=== PATIENT | male | born 1955 | race American Indian/Alaskan Native ===

== ENCOUNTER 2021-07-23 12:18 | Emergency (ER) | payer SELFPAY ==
[2021-07-23] MEDS ORDERED: LIDOCAINE (1%) 10 MG/1 ML VIAL 20 ML MDV INFILTRATI ONE (17:31)
--- NOTE | 2021-07-23 18:31 | Emergency Department Report ---
- General Chief Complaint: Laceration/Recheck/Suture Stated Complaint: LEFT EYEBROW AND LEFT HAND INJURY/WORK RELATED Time Seen by Provider: 07/23/21 17:30 Source: patient Mode of arrival: Ambulatory Limitations: No Limitations - History of Present Illness Initial Comments: 66 yom with no pmh presents to ed for evaluation of left eyebrow laceration and right hand laceration after injury at work. He states that he bumped his head on a door that he was installing and cut his right hand. He states that he was seen at [facility] here, received a tetanus shot there then was sent here for further evaluation. He denies LOC. -: Sudden Location: face Extremity Location: Right: Hand 1 - laceration 2 - laceration 3 - laceration Place: work Patient Tetanus UTD: Yes Context: accidental Associated Symptoms: pain Treatments Prior to Arrival: bandage - Related Data Previous Rx's Medication Instructions Recorded Last Taken Type cephALEXin [Keflex] 500 mg PO Q12HR #14 cap 07/23/21 Unknown Rx Allergies Allergy/AdvReac Type Severity Reaction Status Date / Time No Known Allergies Allergy Unverified 07/23/21 17:03 ED Review of Systems ROS: Stated complaint: LEFT EYEBROW AND LEFT HAND INJURY/WORK RELATED Other details as noted in HPI Comment: All other systems reviewed and negative Constitutional: denies: chills, fever ENT: denies: ear pain Respiratory: no symptoms reported. denies: shortness of breath Cardiovascular: syncope. denies: chest pain, palpitations, edema Endocrine: no symptoms reported Gastrointestinal: denies: abdominal pain, nausea, vomiting Genitourinary: denies: urgency, dysuria Musculoskeletal: denies: back pain Skin: denies: rash, lesions Neurological: denies: headache, weakness Psychiatric: denies: anxiety Hematological/Lymphatic: denies: easy bleeding ED Past Medical Hx - Medications Home Medications: Home Medications Medication Instructions Recorded Confirmed Last Taken Type cephALEXin [Keflex] 500 mg PO Q12HR #14 cap 07/23/21 Unknown Rx ED Physical Exam - General Limitations: No Limitations General appearance: alert, in no apparent distress - Head Head exam: Present: normocephalic. Absent: atraumatic, normal inspection - Expanded Head Exam Expanded Head exam: Present: laceration 1 - laceration - Eye Eye exam: Absent: conjunctival injection - Neck Neck exam: Present: normal inspection. Absent: tenderness - Respiratory Respiratory exam: Absent: respiratory distress - Cardiovascular Cardiovascular Exam: Present: regular rate - GI/Abdominal GI/Abdominal exam: Absent: distended - Extremities Exam Extremities exam: Absent: normal inspection - Expanded Upper Extremity Exam Right Hand Wrist exam: Present: tenderness, laceration. Absent: normal inspection Hand L/R Front: 1 - Positive: laceration 2 - Positive: laceration Neurosensory exam: Present: radial nerve intact Vascular: Absent: vascular compromise, normal capillary refill, pulse deficit radial art - Back Exam Back exam: Present: normal inspection, full ROM. Absent: tenderness - Neurological Exam Neurological exam: Present: alert, oriented X3 - Psychiatric Psychiatric exam: Present: normal affect, normal mood - Skin Skin exam: Present: warm, dry, intact, normal color ED Course Vital Signs 07/23/21 07/23/21 17:03 19:00 Temperature 98.5 F Pulse Rate 76 80 Respiratory 16 Rate Blood Pressure 206/82 [Left] Blood Pressure 158/80 [Right] O2 Sat by Pulse 97 Oximetry - Laceration /Wound Repair Right Palm Hand Wound Location: upper extremity Wound Length (cm): 3 Wound's Depth, Shape: superficial Wound Explored: no foreign body removed Irrigated w/ Saline (ccs): 30 Betadine Prep?: No Anesthesia: 1% Lidocaine Volume Anesthetic (ccs): 7 Wound Repaired With: sutures Suture Size/Type: 4:0, proline Number of Sutures: 5 Layer Closure?: No Sterile Dressing Applied?: Yes Right Anterior Palm Hand Wound Location: upper extremity Wound Length (cm): 4 Wound's Depth, Shape: superficial Wound Explored: no foreign body removed Irrigated w/ Saline (ccs): 30 Betadine Prep?: No Anesthesia: 1% Lidocaine Volume Anesthetic (ccs): 8 Wound Repaired With: sutures Suture Size/Type: 4:0, proline Number of Sutures: 6 Layer Closure?: No Sterile Dressing Applied?: No Left Eye Wound Location: face Wound Length (cm): 2 Wound's Depth, Shape: superficial Wound Explored: no foreign body removed Irrigated w/ Saline (ccs): 20 Betadine Prep?: No Wound Repaired With: Dermabond Layer Closure?: No Sterile Dressing Applied?: No ED Medical Decision Making - Medical Decision Making 66 yom with no pmh presents to ed for evaluation of left eyebrow laceration and right hand laceration after injury at work. He states that he bumped his head on a door that he was installing and cut his right hand. He states that he was seen at [facility] here, received a tetanus shot there then was sent here for fur ther evaluation. He denies LOC. Wounds were thoroughly irrigated and cleaned with saline. Sutures were placed per procedure section. Patient was given rx for keflex to take only if he has signs of infections. Plan of care was reviewed with patient and she verbalized understanding of and agreement with plan of care. He denies c/o at this time. Critical care attestation.: If time is entered above; I have spent that time in minutes in the direct care of this critically ill patient, excluding procedure time. ED Disposition Clinical Impression: Hand laceration Qualifiers: Encounter type: initial encounter Foreign body presence: without foreign body Laterality: right Qualified Code(s): S61.411A - Laceration without foreign body of right hand, initial encounter Eyebrow laceration Qualifiers: Encounter type: initial encounter Laterality: left Qualified Code(s): S01.112A - Laceration without foreign body of left eyelid and periocular area, initial encounter Disposition: 01 HOME / SELF CARE / HOMELESS Is pt being admited?: No Does the pt Need Aspirin: No Condition: Stable Instructions: Laceration Care, Adult, [id number], Sutures, Sudeep, or Adhesive Wound Closure, [id number], Sutured Wound Care, [id number] Additional Instructions: Return to the emergency department or primary care provider in 7 to 10 days to have sutures removed. Take antibiotics only if you develop swelling, redness, or drainage from area. If you develop fever, return to the emergency department for wound check. Prescriptions: cephALEXin [Keflex] 500 mg PO Q12HR #14 cap Referrals: PRIMARY CARE, [Primary Care Provider] - 3-5 Days Forms: Work/School Release Form(ED)
[2021-07-23 19:01] VITALS: BP 158/80
== END 2021-07-23 19:00 | disposition home or self-care (01) ==
LOC: ED 12:18
DX: S61.411A Laceration without foreign body of right hand, initial encounter (principal); S01.112A Laceration without foreign body of left eyelid and periocular area, initial encounter; W26.8XXA Contact with other sharp object(s), not elsewhere classified, initial encounter; Y93.89 Activity, other specified; Y92.89 Other specified places as the place of occurrence of the external cause; Y99.0 Civilian activity done for income or pay
CPT/HCPCS: 12002; 12011; 99282; J3490